=== PATIENT | female | born 1980 | race Caucasian/White ===

== ENCOUNTER 2016-09-09 15:20 | Inpatient (IN) | payer OTHER ==
--- NOTE | ~2016-09-09 | CN ---
Consultation Report [facility] [address] [place]. [address] NAME: CRYSTAL HARRINGTON : 80 STATUS : ADM IN PAT#: [id number] AGE: 36 ADM/REG DATE : 09/09/16 MR#: [id number] REPORT SERV DATE: 09/10/16 DICTATED BY: ANDRES MESSER DATE: 09/10/16 REPORT STATUS : Draft TRANSCRIBED BY: MODL DATE: 09/10/16 GI CONSULTATION DATE OF CONSULTATION: 09/10/2016 REASON FOR CONSULTATION: Evaluation and management of acute recurrent pancreatitis. HISTORY OF PRESENT ILLNESS: Ms. Harrington is a 36-year-old female patient, who presented to [facility] with a chief complaint of abdominal pain. Symptom onset, she states, was yesterday, 09/09/2016, with epigastric abdominal pain and nausea. She came to the [facility] for further evaluation, and she was found to have an elevated lipase at 3559. A CT scan has been ordered, but not taken yet. She has a pertinent past medical history of pancreatitis on two separate occasions prior to this one. She states that her first episode was roughly three years ago, being treated at [place]. She states that in July, she was treated at [facility] for pancreatitis. I did review her records from [facility]. She did admit there on 08/15/2016 and was discharged on 08/18. She had a CT with contrast there, showing mildly enlarged pancreas with body and tail measuring 2.6 to 3 cm with infiltration of the fat planes with no mass being seen. Her admission lipase was 11,407. She denies any alcohol use. She does admit to tobacco abuse. She smokes one pack of cigarettes per day and has no desire to stop. She states that she and some family members were out of town this weekend and ate out a lot heavy fatty meals and she states that when she returned on Thursday, she began to have some discomfort, but tried to self-treat at home with decreasing her diet. Her symptoms worsened, thus prompting her to come in for further evaluation. She had some nausea, but no emesis. She has been unable to tolerate liquids up until this morning. She denies any fever, chills, chest pain, or shortness of breath. No seizure activity. I have seen her this morning. She still complains of some epigastric discomfort that has improved since admission. She states that status post pancreatitis episode, she has never seen anyone in followup to follow up on reasons why she could be experiencing recurrent pancreatitis. I did discuss with her smoking cessation would be of her benefit, again she did express no desire to stop smoking. 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 SOCIAL HISTORY: One pack of cigarettes per day. No alcohol. No illicits. PAST SURGICAL HISTORY: Brain cyst removal, , and tubal ligation. FAMILY HISTORY: Noncontributory from a GI standpoint. HOME MEDICATIONS: Atenolol, Advil PM, and Keppra. ALLERGIES: IBUPROFEN AND LATEX. OF NOTE, HOWEVER, THE PATIENT TAKES IBUPROFEN WITH BENADRYL Consultation Report [place] [id number] [facility] [place]. [address] NAME: CRYSTAL HARRINGTON : 80 STATUS : ADM IN [facility] WITH [facility]#: [id number] AGE: 36 ADM/REG DATE : 09/09/16 MR#: [id number] REPORT SERV DATE: 09/10/16 DICTATED BY: ANDRES MESSER DATE: 09/10/16 REPORT STATUS : Draft TRANSCRIBED BY: SUMEET DATE: 09/10/16 AT NIGHT. REVIEW OF SYSTEMS: A 10-point review of systems obtained with pertinent positives addressed in the history of present illness. PERTINENT LABORATORY DATA: Sodium 146, potassium 3.5, BUN is 5, creatinine 0.53. White count 11.3, hematocrit is 35.5, hemoglobin is 11.8. Triglyceride level 178. Hepatitis panel is pending. Total bilirubin 0.2, alkaline phosphatase 70, ALT 11, AST 7, lipase is 4917. PHYSICAL EXAMINATION: VITAL SIGNS: Temperature is 97.9, pulse 76, respirations 16, and blood pressure 142/82. NEURO: Reveals an obese female, resting in bed, who awakens to name. She is awake, alert, and oriented with no obvious focal deficits. GENERAL: Cooperative, in no obvious apparent distress. HEAD, EARS, EYES, NOSE, AND THROAT: Anicteric. Pupils are equal, round, reactive to light and accommodation. Normocephalic and atraumatic. NECK: No JVD. No palpable nodes. Supple. LUNGS: Diminished with normal respiratory effort exhibited. Equal expansion. CARDIOVASCULAR SYSTEM: Regular rate and rhythm. ABDOMEN: Obese. Tender to palpation to the left upper and midepigastric region without rebound or guarding. She has hypoactive bowel sounds in all four quadrants. No organomegaly appreciated. EXTREMITIES: No edema. Normal distal pulses. SKIN: Warm, dry, and intact. ASSESSMENT: 1. Acute recurrent pancreatitis, unknown etiology. 2. Abdominal pain and nausea secondary to #1. 3. Urinary tract infection, present on admission, undergoing Rocephin treatment. 4. Recent colloid brain cyst with removal at [place]. 5. History of seizure disorder. PLAN: 1. IV fluids, pain and nausea control. 2. Followup CT. 3. Ultrasound of gallbladder. 4. Check IgG4 levels. a. To rule out autoimmune pancreatitis. 5. Question outpatient EUS at some point. We will follow. Consultation Report [address] [place]. [address] NAME: CRYSTAL HARRINGTON : 80 STATUS : ADM IN [facility] WITH [facility]#: [id number] AGE: 36 ADM/REG DATE : 09/09/16 MR#: [id number] REPORT SERV DATE: 09/10/16 DICTATED BY: ANDRES MESSER DATE: 09/10/16 REPORT STATUS : Draft TRANSCRIBED BY: SUMEET DATE: 09/10/16 MERY/SUMEET MAGED Jim / [id number] CC: Lauren Dos Santos M.D.
--- NOTE | ~2016-09-09 | HP ---
History And Physical [place] [id number] [facility] [place]. [address] NAME: CRYSTAL BAÑUELOS : 80 STATUS : ADM IN [facility]#: [id number] AGE: 36 ADM/REG DATE : 09/09/16 MR#: [id number] REPORT SERV DATE: 09/09/16 DICTATED BY: KENNEDY VARGAS DATE: 09/09/16 REPORT STATUS : Draft TRANSCRIBED BY: MODMell DATE: 09/09/16 DATE OF ADMISSION: 09/09/2016 CHIEF COMPLAINT: Abdominal pain. HISTORY OF PRESENT ILLNESS: The patient is a 36-year-old female with past medical history of recurrent pancreatitis third episode in three years with most recent episode approximately three weeks ago. Additionally, the patient has had recent brain cyst removal by Dr. Land at [facility]. Since discharge, the patient was doing well except she had episode of pancreatitis which she was treated for this at [facility], resolved after five days. The patient reports that she was doing well up until last night three weeks post discharge. The patient had abdominal pain occurred again. The patient attempted to do supportive treatment, was having improvement with just using pillow for cramping, but today symptoms became worse. The patient was only able to tolerate broth, although she is able to tolerate this, was noted to have symptoms that were constant in the central abdomen occurred last night, moderate to severe without burning, but does have cramping. No radiating associated with mild nausea, but no vomiting. No fevers, diarrhea, chills, chest pain, shortness of breath, or seizures worsened with palpitation and relieved by rest, and pain medication given in the emergency room. Symptoms are still present, but appears improved from initial presentation. The patient denies any alcohol. Does have one pack per day tobacco, but no illicits. ADDITIONAL REVIEW OF SYSTEMS: A 10-point review of systems negative except that noted in the HPI. PAST MEDICAL HISTORY: Hypertension, questionable seizures, and recent cyst with surgical removal. Tobacco use. SOCIAL HISTORY: One pack per day smoking. No alcohol or illicits. PAST SURGICAL HISTORY: Brain cyst removed by Dr. Land at [place], and tubal. FAMILY HISTORY: Heart disease, diabetes, and hypertension. No history of cancer or pancreas issues in family. ALLERGIES: IBUPROFEN AND QUESTIONABLE IV DYE THE PATIENT REPORTS THAT SHE HAS TOLERATED IV DYE BUT WHEN SHE WAS HAVING WORKUP FOR HER CYST WHEN THEY DID IV DYE, SHE HAD SEIZURES THAT WAS PROVOKED, HAS NOT HAD SEIZURES SINCE. PHYSICAL EXAMINATION: VITAL SIGNS: The patient's blood pressure 168/95, temperature 98.2, pulse 67, respirations 16, and O2 saturations 98% on room air. GENERAL: Mild discomfort older than stated age. Mildly disheveled. HEENT: Head with old surgical scar on right head. Eyes: Mild asymmetry with right side, mild bright-eyed lag in the lateral gaze from right eye. Right eye lag from lateral gaze to the left eye. Symmetrical smile. Does have poor oral dentition. Nares patent. History And Physical [address] [place]. [address] NAME: CRYSTAL BAÑUELOS : 80 STATUS : ADM IN [facility]#: [id number] AGE: 36 ADM/REG DATE : 09/09/16 MR#: [id number] REPORT SERV DATE: 09/09/16 DICTATED BY: KENNEDY VARGAS DATE: 09/09/16 REPORT STATUS : Draft TRANSCRIBED BY: SUMEET DATE: 09/09/16 RESPIRATORY: Clear to auscultation. No wheezes or rales. CARDIOVASCULAR: Regular rate. No rubs or gallops. GASTROINTESTINAL: Mild tenderness to palpation in all upper abdominal quadrants. No rebound. No guarding. MUSCULOSKELETAL: Moves all extremities x4. SKIN: Warm, dry. LYMPH: No cervical or supraclavicular lymphadenopathy. HEMATOLOGIC: No bleeding or bruising. NEUROLOGIC: Alert and oriented. Grossly intact strength in the upper and lower extremities. PSYCH: Appropriate mood and affect. LABORATORY DATA: CBC: WBC count 11.1, H and H 12.4 and 37.5, platelets 439, no bands. Lipase 3559. LFTs within normal limits. BUN and creatinine 5 and 0.6 and chloride 113. Urinalysis are large leukocyte esterase with 11 wbc's. Negative test. ASSESSMENT AND PLAN: 1. recurrent pancreatitis. 2. Urinary tract infection. 3. Recent brain cyst removal. 4. Tobacco use. 5. Hypertension. 6. Seizure history. PLAN: 1. For recurrent pancreatitis, first episode was three years ago, last episode approximately three weeks ago. The patient has had three total bouts of pancreatitis with unknown etiology. We will check CT. LFTs within normal limits. We will check hepatitis panel and lipid panel. GI evaluation for multiple recurrences. IV fluid hydration. Check LDH, ionized calcium in a.m., and UDS. Continue supportive treatment. The patient reports that symptoms typically lasted approximately five days in both prior episodes. 2. UTI: Check culture. Rocephin. 3. Recent brain cyst removal secondary to recurrent headaches, followed by Dr. Land. 4. Tobacco use. Nicotine patch. Discussed cessation. 5. Hypertension. Atenolol p.r.n. 6. Reported seizure history. Follows with Dr. Land. Continue Keppra secondary to cyst, status post resection, on treatment. All questions answered. 7. Disposition: Pending pain control and resolution of symptoms. DDN/MODL Kennedy Vargas MD History And Physical [address] [address] NAME: CRYSTAL BAÑUELOS : 80 STATUS : ADM IN PAT#: [id number] AGE: 36 ADM/REG DATE : 09/09/16 MR#: [id number] REPORT SERV DATE: 09/09/16 DICTATED BY: KENNEDY VARGAS DATE: 09/09/16 REPORT STATUS : Draft TRANSCRIBED BY: MODL DATE: 09/09/16 / [id number] CC: Lauren Dos Santos M.D.
--- NOTE | ~2016-09-09 | DS ---
Discharge Summary [facility] [address] [place]. [address] NAME: CRYSTAL BAÑUELOS : 80 STATUS : ADM IN [facility]#: [id number] AGE: 36 ADM/REG DATE : 09/09/16 MR#: [id number] REPORT SERV DATE: 09/12/16 DICTATED BY: JIM DORANTES DATE: 09/12/16 REPORT STATUS : Draft TRANSCRIBED BY: MODL DATE: 09/12/16 ADMISSION DATE: 09/09/2016 DISCHARGE DATE: CONSULTING PHYSICIAN: Dr. Maradiaga for GI. FINAL DIAGNOSES: 1. Recurrent pancreatitis. 2. Hypertension. 3. History of seizures. 4. Hepatitis B, newly diagnosed. 5. Recent brain cyst removal. 6. Tobacco abuse. DIAGNOSTIC EXAMS: Abdominal CAT scan showing findings consistent with acute pancreatitis. There is hepatomegaly with mild fatty infiltration. Gallbladder ultrasound showing findings compatible with pancreatitis, negative ultrasound examination of the gallbladder. HOSPITAL COURSE: Please refer to the H and P done by Dr. Bowling dated on 09/09/2016. Briefly, this is a 36-year-old female who comes in for abdominal pain. The patient has a history of recurrent pancreatitis and this would be her third episode in 3 years. She does not have a GI doctor and this has not been worked up. The patient had recent brain cyst removal by Dr. Land at [facility], and she did well on that discharge until she started having some abdominal pain. She went to [place] and that resolved after 5 days, and then 1 day prior to admission, she started having another attack of abdominal pain. The patient was admitted by Dr. Bowling, and the CAT scan, lipase proved that she has another attack. The patient was then admitted, placed on supportive treatment, and we got GI to consult as this has been very frequent. We did the above tests, and she denies any alcohol, new medication. There were no stones found and triglycerides was only 178, so we did further workup and it revealed that the patient has a positive hepatitis B with the hepatitis B core IgM reactive. We checked her HIV, hepatitis A and C and that was negative. We got GI involved, and they sent out for HBe antibody antigen and IgG to look for other causes of pancreatitis. Unfortunately, this has been pending as it is sent out. Meanwhile, the patient continues to improve, and there were several times where in she was seen walking outside, smoking. We counseled her on stopping this; however, the patient refuses, so at this point, if the patient is able to eat her breakfast with a soft diet, she will be discharged with the above diagnosis. She will be on the same medications she was at home, which are atenolol 25 mg a day, Keppra 1000 mg twice a day. I discussed with her about stopping smoking that might reduce the risk for pancreatitis. She will be needing to follow up with a neurosurgeon as scheduled, follow up with her PCP, Keo Malhotra, in 1 to 2 weeks, which she needs to follow up the pending results of the IgG subclass and hepatitis Be antibody and antigen. Unfortunately, our GI in [facility] does not accept her insurance. She would need a referral for a GI to work her pancreatitis and hepatitis B. This has been explained to her. TIME SPENT: 35 minutes. Discharge Summary [address] [address] NAME: CRYSTAL BAÑUELOS : 80 STATUS : ADM IN [facility]#: [id number] AGE: 36 ADM/REG DATE : 09/09/16 MR#: [id number] REPORT SERV DATE: 09/12/16 DICTATED BY: JIM DORANTES DATE: 09/12/16 REPORT STATUS : Draft TRANSCRIBED BY: SUMEET DATE: 09/12/16 PATRICK/SUMEET Jim Dorantes M.D. / [id number] CC: Keo Malhotra M.D.
[2016-09-09 14:32] LABS: BASOPHILS 0.3 %; BASOPHILS ABSOLUTE 0.03 10/3/uL (0.0-0.16); EOSINOPHILS 0.8 %; EOSINOPHILS ABSOLUTE 0.09 10/3/uL (0.0-0.53); HEMATOCRIT 37.5 % (36.0-48.0); HEMOGLOBIN 12.4 g/dL (12.0-16.0); IMMATURE GRANULOCYTES 0.3 %; LYMPHOCYTES 27.8 %; LYMPHOCYTES ABSOLUTE 3.07 10/3/uL (0.67-4.30); MEAN CORPUS HGB CONC 33.1 g/dL (32.0-36.0); MEAN CORPUSCULAR HEMOGLOB 29.2 pg (26.0-34.0); MEAN CORPUSCULAR VOLUME 88.4 fL (80-100); MEAN PLATELET VOLUME 10.2 fL (9.2-13.0); MONOCYTES 4.8 %; MONOCYTES ABSOLUTE 0.53 10/3/uL (0.21-1.20); NEUTROPHILS ABSOLUTE 7.31 10/3/uL (2.02-8.40); PLATELET COUNT 439 10/3/uL (150-400); RBC DISTRIBUTION WIDTH 15.2 % (12.0-16.0); RED CELL COUNT 4.24 10/6/uL (4.0-5.6); WHITE BLOOD CELLS 11.1 10/3/uL (4.5-10.5)
[2016-09-09 14:33] LABS: IMMATURE GRANULOCYTES ABSOLUTE 0.03 10/3/uL (0.0-0.11); MANUAL DIFF NO %
[2016-09-09 14:38] LABS: ASCORBIC ACID (UR NOT ORDER) NEG (NEG); BILIRUBIN, URINE NEGATIVE (NEG); ER URINALYSIS TAT 0 Hrs 13 Mins; KETONE, URINE NEGATIVE (NEG); LEUKOCYTE ESTERASE(NOT OR LARGE (NEG); NITRITE (URINE) NEG (NEG); WBC (NOT ORDERED) (RFLEX) 11 (0-5)
[2016-09-09 14:51] LABS: ALBUMIN 3.3 G/DL (3.5-5.0); ALKALINE PHOSPHATASE 81 U/L (45-117); BUN (BLOOD UREA NITROGEN) 5 MG/DL (6-23); CALCIUM, SERUM 8.7 MG/DL (8.5-10.4); CHLORIDE, SERUM 113 MMOL/L (96-112); CO2 (CARBON DIOXIDE) 24 MMOL/L (24-34); GFR AFRICAN AMERICAN 136 ML/MIN (>=60); GFR NON AFRICAN AMERICAN 117 ML/MIN (>=60); GLOBULIN 3.3 G/DL (2.5-4.1); GLUCOSE, SERUM 95 MG/DL (60-99); POTASSIUM, SERUM 3.5 MMOL/L (3.5-5.3); SGOT(AST) 7 U/L (5-40); SGPT(ALT) 16 U/L (5-65); SODIUM, SERUM 146 MMOL/L (135-148); TOTAL BILIRUBIN 0.3 MG/DL (0-1.2); TOTAL PROTEIN 6.6 G/DL (6.0-8.5)
[2016-09-09 14:57] LABS: EOSINOPHILS 1 %; EOSINOPHILS ABSOLUTE (CALC) 0.11 10/3/uL (0.0-0.53); ER DIFF TAT 0 Hrs 31 Mins; LYMPHOCYTES 16 %; LYMPHOCYTES ABSOLUTE (CALC) 1.78 10/3/uL (0.67-4.30); MONOCYTES 4 %; MONOCYTES ABSOLUTE (CALC) 0.44 10/3/uL (0.21-1.20); NEUTROPHILS ABSOLUTE (CALC) 8.77 10/3/uL (2.02-8.40); PLATELET ESTIMATE SLT INC (ADEQUATE); RBC MORPHOLOGY NORM (NORMAL); SEGMENTED NEUTROPHIL (0) 79 %; TOTAL NUCLEATED CELLS 100
[2016-09-09] MEDS ORDERED: ATEN25 PO (15:29)
[2016-09-09] MEDS ORDERED: KEPPRA1000 MG PO (15:29)
[2016-09-09] MEDS ORDERED: ADVIL PM1 CAP PO (15:30)
[2016-09-09 16:04] LABS: AMPHETAMINES (NOT ORD) NEG (NEG); BARBITURATES (NOT ORDERED NEG (NEG); BENZODIAZEPINES (NOT ORD) NEG (NEG); CANNABINOIDS (THC) NEG (NEG); COCAINE (NOT ORDERED) NEG (NEG); OPIATES NEG (NEG); PHENCYCLIDINE(PCP) NEG (NEG); TRICYCLICS NEG (NEG)
[2016-09-09 21:38] LABS: PROCALCITONIN 0.05 ng/mL (<0.5)
[2016-09-10 06:57] LABS: BASOPHILS 0.2 %; BASOPHILS ABSOLUTE 0.02 10/3/uL (0.0-0.16); EOSINOPHILS 0.8 %; EOSINOPHILS ABSOLUTE 0.09 10/3/uL (0.0-0.53); HEMATOCRIT 35.5 % (36.0-48.0); HEMOGLOBIN 11.8 g/dL (12.0-16.0); IMMATURE GRANULOCYTES 0.4 %; IMMATURE GRANULOCYTES ABSOLUTE 0.04 10/3/uL (0.0-0.11); LYMPHOCYTES 24.8 %; MEAN CORPUS HGB CONC 33.2 g/dL (32.0-36.0); MEAN CORPUSCULAR HEMOGLOB 29.9 pg (26.0-34.0); MEAN CORPUSCULAR VOLUME 89.9 fL (80-100); MEAN PLATELET VOLUME 10.3 fL (9.2-13.0); MONOCYTES 6.1 %; MONOCYTES ABSOLUTE 0.69 10/3/uL (0.21-1.20); NEUTROPHILS 67.7 %; NEUTROPHILS ABSOLUTE 7.65 10/3/uL (2.02-8.40); PLATELET COUNT 411 10/3/uL (150-400); RBC DISTRIBUTION WIDTH 15.1 % (12.0-16.0); RED CELL COUNT 3.95 10/6/uL (4.0-5.6); WHITE BLOOD CELLS 11.3 10/3/uL (4.5-10.5)
[2016-09-10 06:58] LABS: MANUAL DIFF NO %
[2016-09-10 07:33] LABS: ALBUMIN 2.9 G/DL (3.5-5.0); ALKALINE PHOSPHATASE 70 U/L (45-117); BUN (BLOOD UREA NITROGEN) 5 MG/DL (6-23); CHLORIDE, SERUM 112 MMOL/L (96-112); CHOL/HDL RATIO(NOT ORDER) 6.7 (0-5); CHOLESTEROL 208 MG/DL (< 200); CO2 (CARBON DIOXIDE) 27 MMOL/L (24-34); CREATININE 0.53 MG/DL (0.55-1.02); GFR AFRICAN AMERICAN 142 ML/MIN (>=60); GFR NON AFRICAN AMERICAN 122 ML/MIN (>=60); GLUCOSE, SERUM 102 MG/DL (60-99); HDL CHOLESTEROL 31 MG/DL (> 49); LDL CHOLESTEROL 142 MG/DL (< 130); NON-HDL CHOLESTEROL 177 MG/DL (< 160); POTASSIUM, SERUM 3.5 MMOL/L (3.5-5.3); SGOT(AST) 7 U/L (5-40); SGPT(ALT) 11 U/L (5-65); SODIUM, SERUM 146 MMOL/L (135-148); TOTAL BILIRUBIN 0.2 MG/DL (0-1.2); TOTAL PROTEIN 5.6 G/DL (6.0-8.5); TRIGLYCERIDE 178 MG/DL (< 150)
[2016-09-10 07:35] LABS: DIRECT BILIRUBIN < 0.1 MG/DL (0.0-0.4); INDIRECT BILIRUBIN(NOT ORDER) 0.1 MG/DL (0.1-0.9)
[2016-09-10 09:23] LABS: HEPATITIS B SURFACE ANTIGEN NON-REACTIVE (NON-REACT)
[2016-09-10 09:44] LABS: HEPATITIS C ANTIBODY NON-REACTIVE (NON-REACT)
[2016-09-10 09:52] LABS: HEP A ANTIBODY IGM NON-REACTIVE (NON-REACT)
[2016-09-10 10:48] LABS: HEPATITIS B CORE AB IGM REACTIVE (NON-REAC)
[2016-09-11 06:34] LABS: BASOPHILS 0.3 %; BASOPHILS ABSOLUTE 0.03 10/3/uL (0.0-0.16); EOSINOPHILS 1.2 %; HEMATOCRIT 33.6 % (36.0-48.0); IMMATURE GRANULOCYTES 0.2 %; IMMATURE GRANULOCYTES ABSOLUTE 0.02 10/3/uL (0.0-0.11); LYMPHOCYTES 33.1 %; LYMPHOCYTES ABSOLUTE 2.87 10/3/uL (0.67-4.30); MEAN CORPUS HGB CONC 32.7 g/dL (32.0-36.0); MEAN CORPUSCULAR HEMOGLOB 29.1 pg (26.0-34.0); MEAN CORPUSCULAR VOLUME 88.9 fL (80-100); MEAN PLATELET VOLUME 10.3 fL (9.2-13.0); MONOCYTES 6.4 %; MONOCYTES ABSOLUTE 0.55 10/3/uL (0.21-1.20); NEUTROPHILS 58.8 %; NEUTROPHILS ABSOLUTE 5.09 10/3/uL (2.02-8.40); PLATELET COUNT 392 10/3/uL (150-400); RBC DISTRIBUTION WIDTH 15.2 % (12.0-16.0); RED CELL COUNT 3.78 10/6/uL (4.0-5.6); WHITE BLOOD CELLS 8.7 10/3/uL (4.5-10.5)
[2016-09-11 06:38] LABS: MANUAL DIFF NO %
[2016-09-11 06:50] LABS: ALBUMIN 3.1 G/DL (3.5-5.0); ALKALINE PHOSPHATASE 73 U/L (45-117); BUN (BLOOD UREA NITROGEN) 4 MG/DL (6-23); CALCIUM, SERUM 8.4 MG/DL (8.5-10.4); CHLORIDE, SERUM 110 MMOL/L (96-112); CO2 (CARBON DIOXIDE) 27 MMOL/L (24-34); CREATININE 0.51 MG/DL (0.55-1.02); GFR AFRICAN AMERICAN 143 ML/MIN (>=60); GFR NON AFRICAN AMERICAN 124 ML/MIN (>=60); GLUCOSE, SERUM 86 MG/DL (60-99); POTASSIUM, SERUM 3.5 MMOL/L (3.5-5.3); SGOT(AST) 8 U/L (5-40); SGPT(ALT) 11 U/L (5-65); SODIUM, SERUM 145 MMOL/L (135-148); TOTAL BILIRUBIN 0.3 MG/DL (0-1.2)
[2016-09-11 06:54] LABS: DIRECT BILIRUBIN < 0.1 MG/DL (0.0-0.4); INDIRECT BILIRUBIN(NOT ORDER) 0.2 MG/DL (0.1-0.9)
[2016-09-12 06:39] LABS: BASOPHILS 0.6 %; BASOPHILS ABSOLUTE 0.04 10/3/uL (0.0-0.16); EOSINOPHILS 1.8 %; EOSINOPHILS ABSOLUTE 0.13 10/3/uL (0.0-0.53); HEMATOCRIT 33.7 % (36.0-48.0); IMMATURE GRANULOCYTES 0.3 %; IMMATURE GRANULOCYTES ABSOLUTE 0.02 10/3/uL (0.0-0.11); LYMPHOCYTES 47.1 %; LYMPHOCYTES ABSOLUTE 3.37 10/3/uL (0.67-4.30); MEAN CORPUS HGB CONC 32.6 g/dL (32.0-36.0); MEAN CORPUSCULAR HEMOGLOB 29.2 pg (26.0-34.0); MEAN CORPUSCULAR VOLUME 89.4 fL (80-100); MEAN PLATELET VOLUME 10.5 fL (9.2-13.0); MONOCYTES 7.3 %; MONOCYTES ABSOLUTE 0.52 10/3/uL (0.21-1.20); NEUTROPHILS 42.9 %; NEUTROPHILS ABSOLUTE 3.08 10/3/uL (2.02-8.40); PLATELET COUNT 380 10/3/uL (150-400); RBC DISTRIBUTION WIDTH 15.3 % (12.0-16.0); RED CELL COUNT 3.77 10/6/uL (4.0-5.6); WHITE BLOOD CELLS 7.2 10/3/uL (4.5-10.5)
[2016-09-12 06:47] LABS: MANUAL DIFF NO %
[2016-09-12 06:50] LABS: ALBUMIN 3.1 G/DL (3.5-5.0); ALKALINE PHOSPHATASE 71 U/L (45-117); BUN (BLOOD UREA NITROGEN) 2 MG/DL (6-23); CALCIUM, SERUM 8.5 MG/DL (8.5-10.4); CHLORIDE, SERUM 111 MMOL/L (96-112); CO2 (CARBON DIOXIDE) 25 MMOL/L (24-34); CREATININE 0.51 MG/DL (0.55-1.02); DIRECT BILIRUBIN < 0.1 MG/DL (0.0-0.4); GFR AFRICAN AMERICAN 143 ML/MIN (>=60); GFR NON AFRICAN AMERICAN 124 ML/MIN (>=60); GLUCOSE, SERUM 89 MG/DL (60-99); INDIRECT BILIRUBIN(NOT ORDER) 0.1 MG/DL (0.1-0.9); POTASSIUM, SERUM 3.8 MMOL/L (3.5-5.3); SGOT(AST) 9 U/L (5-40); SGPT(ALT) 15 U/L (5-65); SODIUM, SERUM 146 MMOL/L (135-148); TOTAL BILIRUBIN 0.2 MG/DL (0-1.2); TOTAL PROTEIN 5.9 G/DL (6.0-8.5)
[2016-09-12 20:40] LABS: IMMUNOGLOBULIN G SUBCLASS 1 399 mg/dL (405-1011); IMMUNOGLOBULIN G SUBCLASS 2 117 mg/dL (169-786); IMMUNOGLOBULIN G SUBCLASS 3 27 mg/dL (11-85); IMMUNOGLOBULIN G SUBCLASS 4 <1 mg/dL (3-201)
[2016-09-15 23:47] LABS: HBE AB Non Reactive (NR)
[2016-09-16 23:09] LABS: HBE AG Non Reactive (NR)
== END 2016-09-12 14:41 | disposition home or self-care (01) | DRG 439 ==
LOC: ER 15:20 → 5SO 15:37
PROVIDERS: Emergency Medicine; Hospitalist; Nurse Practitioner Family; Student in an Organized Health Care Education/Training Program
DX: K85.90 Acute pancreatitis without necrosis or infection, unspecified (principal); B16.9 Acute hepatitis B without delta-agent and without hepatic coma; I10 Essential (primary) hypertension; N39.0 Urinary tract infection, site not specified; F17.210 Nicotine dependence, cigarettes, uncomplicated; G40.909 Epilepsy, unspecified, not intractable, without status epilepticus; Z88.6 Allergy status to analgesic agent; Z91.041 Radiographic dye allergy status; Z82.49 Family history of ischemic heart disease and other diseases of the circulatory system; Z83.3 Family history of diabetes mellitus
CPT/HCPCS: 74150; 76705; 80048; 80053; 80061; 80074; 80076; 80305; 81001; 82330; 82787; 82787-59; 83605; 83615; 83690; 83735; 84145; 84443; 84703; 85025; 86707; 87086; 87350; 87389; 93005; 99285; A9270-GY; J1170; J2405